=== PATIENT | male | born 1935 | race Caucasian/White ===

== ENCOUNTER 2021-10-31 19:08 | Emergency (ER) | payer OTHER ==
[~2021-10-31] VITALS: Ht 180.3 cm; Wt 93.8 kg
--- NOTE | 2021-10-31 19:43 | PHYS DOC ---
Past History Past Medical History: Anxiety, Arthritis, Other General Adult EDM: Chief Complaint: MECHANICAL FALL HPI: HPI: "This week we've been celebrating my and my birthday.... I was over at my daughter's house.... And I was coming down the ramp and had some black ice... And my feet went out from under me and I hit the back of my head.. that was about 6 pm.. but I ve been very shaky since then nothing else really got hurt.. It did not knock me out but it did give me a big hematoma and abrasion to my scalp.. " Patient is a 86 year old male who presents with above hx of slip and fall. Patient denies any loss of consciousness. Patient has an abrasion and approximately 10 x 10 cm hematoma to posterior scalp. Patient states he was had generalized weakness and shaking since the fall. No other injury reported during the fall. Patient does not remember his last tetanus shot. Patient gets all his care at the [facility]. Currently they are on diversion. Injury occurred approximately 1800 hrs. Review of Systems: Review of Systems: Constitutional: Denies fever or chills Eyes: Denies change in visual acuity HENT: Denies nasal congestion or sore throat Respiratory: Denies cough or shortness of breath Cardiovascular: Denies chest pain or edema GI: Denies abdominal pain, nausea, vomiting, bloody stools or diarrhea : Denies dysuria Musculoskeletal: Denies back pain or joint pain Integument: Denies rash Neurologic: Denies headache, focal weakness or sensory changes Endocrine: Denies polyuria or polydipsia Lymphatic: Denies swollen glands Psychiatric: Denies depression or anxiety Family History: Family History: Noncontributory to presentation. Current Medications: Current Meds: See nursing for home meds Allergies: Allergies: No known drug allergies Physical Exam: PE: Constitutional: Well developed, well nourished, for stated age. Mild distress, non-toxic appearance. [] HENT: Normocephalic, 10 x 10 cm contusion and abrasion to posterior scalp,, bilateral external ears normal, oropharynx moist, no oral exudates, nose normal. [] Eyes: PERRLA, EOMI, conjunctiva normal, no discharge. [] Neck: Normal range of motion, mild upper neck tenderness, supple, no stridor. [] Cardiovascular:Heart rate regular rhythm, no murmur, PMI to the left Lungs & Thorax: Bilateral breath sounds equal at apex auscultation [] Abdomen: Bowel sounds normal, soft, no tenderness, no masses, no pulsatile masses. Old surgery scars. Skin: Warm, dry, no erythema, no rash. Poor turgor Back: No tenderness, no CVA tenderness. [] Extremities: No tenderness, no cyanosis, no clubbing, ROM intact, no edema. Contusion elbow back. Arthritic changes. Neurologic: Alert and oriented X 3, moves all extremities on request does have distal sensory, no focal deficits noted. [] Psychologic: Affect anxious, judgement normal, mood normal. [] EKG: EKG: My interpretation EKG shows a sinus rhythm at 67 bpm. No acute morphology. Time of EKG is 2007 hrs. [] Radiology/Procedures: Radiology/Procedures: [place] [address] IMAGING REPORT Signed PATIENT: SHIRAZ LANE JACCOUNT: [id number] : 1935 LOCATION: ER AGE: 86 SEX: M EXAM STATUS: REG ER ORD. PHYSICIAN: CAROL JETT MD REASON: OMNI 350,100ML IV.Fall, weak, dyspnea PROCEDURE: CT ANGIOGRAPHY CHEST EXAMINATION: CTA Chest With IV contrast INDICATION:86 years, Male, falling down, weakness, dyspnea. COMPARISON: None. TECHNIQUE: Spiral CTA was obtained from the jugular notch through the posterior costophrenic recess. 3-D MIPS, sagittal and coronal reformats were obtained. Exposure: One or more of the following individualized dose reduction techniques were utilized for this examination: 1. Automated exposure control 2. Adjustment of the mA and/or kV according to patient size 3. Use of iterative reconstruction technique. FINDINGS: LUNGS/PLEURA: Central airways are patent. Scattered bilateral linear subsegmental atelectasis. No focal consolidation, pleural effusion or pneumothorax. There is a 6 mm pleural-based nodule in the left lower lobe. Additional, few scattered sub-5 mm solid pulmonary nodules bilaterally. Calcified granuloma in the lingula. MEDIASTINUM: No pathologic mediastinal or hilar adenopathy. Left mediastinal and left hilar calcified lymph nodes. Ectatic ascending thoracic aorta measures up to 4.0 cm in maximum diameter. Pulmonary arteries are normal in caliber. No evidence of pulmonary embolism. Mild cardiomegaly. No pericardial effusion. Moderate calcified coronary atherosclerosis. The visualized thyroid and the esophagus are unremarkable. AXILLA/SOFT TISSUE: No supraclavicular or axillary adenopathy. Regional soft tissues are within normal limits. UPPER ABDOMEN: The visualized upper abdomen appears unremarkable. BONES: No evidence of acute fractures or aggressive osseous lesions. IMPRESSION: 1. No evidence of pulmonary embolism. 2. Ectatic ascending thoracic aorta measures up to 4.0 cm in maximum diameter. 3. A 6 mm pleural-based nodule in the left lower lobe. Additional, few scattered sub-5 mm solid pulmonary nodules. Fleischner Society guidelines for management of incidental pulmonary nodule (Radiology 2017):Multiple solid nodules 6-8 mm: LOW-RISK and HIGH-RISK patient: CT at 3-6 months, then consider CT at 18-24 months 4. Moderate calcified coronary atherosclerosis. Electronically signed by: Cherie Stevenson MD (10/31/2021 11:52 PM) [facility] DICTATED AND SIGNED BY: CHERIE STEVENSON MD DATE: 10/31/21 7805 CC: CAROL JETT MD; NACHO HARRELL ~MTH0 0 [][place] [address] IMAGING REPORT Signed PATIENT: SHIRAZ LANE JACCOUNT: [id number] : 1935 LOCATION: ER AGE: 86 SEX: M EXAM STATUS: PRE ER ORD. PHYSICIAN: CAROL JETT MD REASON: fall PROCEDURE: PORTABLE CHEST 1V XR CHEST 1V History: Reason: fall / Spl. Instructions: / History: . Pain Comparison: None. Findings: Eventration of the right hemidiaphragm. No pleural effusion. No pneumothorax. Mild patchy bibasilar opacities. Impression: 1. Mild bibasilar linear atelectasis. Electronically signed by: Ford Noriega DO (10/31/2021 8:59 PM) [facility] DICTATED AND SIGNED BY: FORD NORIEGA DO DATE: 10/31/212057 CC: CAROL JETT MD; NON,STAFF ~MTH0 [address] [address] IMAGING REPORT Signed PATIENT: SHIRAZ LANECOUNT: [id number] : 1935 LOCATION: ER AGE: 86 SEX: M EXAM STATUS: PRE ER ORD. PHYSICIAN: CAROL JETT MD REASON: fall , head injury PROCEDURE: CT HEAD AND CERVICAL SPINE WO EXAM: CT HEAD WITHOUT IV CONTRAST CLINICAL HISTORY: Reason: fall , head injury / Spl. Instructions: / History: COMPARISON: None. TECHNIQUE: Routine CT of the head without contrast. Soft tissues and bone windows were reviewed. PQRS compliance statement - One or more of the following individualized dose reduction techniques were utilized for this study: 1. Automated exposure control 2. Adjustment of the mA and/or kV according to patient size 3. Use of iterative reconstruction technique FINDINGS: There is no evidence of hemorrhage, mass or extra-axial fluid collection. Richardson-white differentiation is maintained with no evidence of edema. There is no mass effect or shift of the intracranial structures. The ventricles, basilar cisterns and cortical sulci are normal in size and configuration for the patients stated age. The cerebellum and brainstem are unremarkable. The calvarium demonstrates no evidence of fracture or focal lesion. There is normal aeration of the visualized paranasal sinuses and mastoid air cells. The visualized portions of the orbits are normal. IMPRESSION: No evidence for acute intracranial process. EXAM: CT CERVICAL SPINE WITHOUT IV CONTRAST CLINICAL HISTORY: fall , head injury COMPARISON: None available. TECHNIQUE: Helical CT of the cervical spine was performed. Axial, coronal and sagittal reformatted images were also performed. PQRS compliance statement - One or more of the following individualized dose reduction techniques were utilized for this study: 1. Automated exposure control 2. Adjustment of the mA and/or kV according to patient size 3. Use of iterative reconstruction technique FINDINGS: Vertebral body heights are preserved. No acute fracture. Atlantodental degenerative changes are seen. Severe C3-4 disc height loss. Severe C6-7 disc height loss. Trace anterolisthesis of C7 on T1 likely degenerative. Interbody fusion C4-5. No acute fracture. IMPRESSION: 1. Multilevel spondylosis as above 2. Negative acute fracture 3. Trace anterolisthesis of C7 on T1 likely degenerative. Electronically signed by: Jack Larkin MD (10/31/2021 8:54 PM) [facility] DICTATED AND SIGNED BY: JACK LARKIN MD DATE: 10/31/212050 CC: CAROL JETT MD; NON,STAFF ~MTH0 0 Heart Score: C/O Chest Pain: N/A HEART Score for Chest Pain: HEART Score for Chest Pain Response (Comments) Value History Slighlty/Non-Suspicious 0 ECG Normal 0 Age > 65 2 Risk Factors No Risk Factors 0 Troponin < Normal Limit 0 Total 2 Risk Factors: Risk Factors: DM, Current or recent (<one month) smoker, HTN, HLP, family history of CAD, obesity. Risk Scores: Score 0 - 3: 2.5% MACE over next 6 weeks - Discharge Home Score 4 - 6: 20.3% MACE over next 6 weeks - Admit for Clinical Observation Score 7 - 10: 72.7% MACE over next 6 weeks - Early Invasive Strategies Course & Med Decision Making: Course & Med Decision Making Pertinent Labs and Imaging studies reviewed. (See chart for details) Patient has no direct shower water on abrasion contusion posterior scalp. For least 2 days. May use peroxide to clean area if needed. Apply Polysporin 4 times a day. Follow-up primary care. Stable someone to get observe him tonight. If patient vomits more than once after returning home will need reexam tonight. Impression: 1. Slip and fall 2. Head Injury 3. Contusions 4. Hyponatremia 5. Elevated D- dimer- ( suspect from contusions, head, elbows ect) [] Dragon Disclaimer: Dragon Disclaimer: This electronic medical record was generated, in whole or in part, using a voice recognition dictation system. Departure Departure: Referrals: NON,STAFF (PCP) Marty Disclaimer This chart was dictated in whole or in part using Voice Recognition software in a busy, high-work load, and often noisy Emergency Department environment. It may contain unintended and wholly unrecognized errors or omissions. CAROL JETT MD Oct 31, 2021 19:43
[2021-10-31] MEDS ORDERED: IV RINGERS SOLUTION,LACTATED 1,000 ML IV SCH (19:45)
--- NOTE | 2021-10-31 20:35 | EKG ---
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
[2021-10-31 20:43] LABS: BASO % 1 % (0-3); EOS # 0.2 x10^3/uL (0.0-0.7); EOS % 5 % (0-3); HEMATOCRIT 38.6 % (39.0-53.0); HEMOGLOBIN 13.2 g/dL (13.0-17.5); LYMPH % 21 % (24-48); MEAN CORPUSCULAR HEMOGLOBIN 35 pg (25-35); MEAN CORPUSCULAR HGB CONC 34 g/dL (31-37); MEAN CORPUSCULAR VOLUME 102 fL (79-100); MONO # 0.6 x10^3/uL (0.0-1.1); MONO % 13 % (0-9); NEUT % 61 % (31-73); PLATELET COUNT 229 x10^3/uL (140-400); RED BLOOD COUNT 3.79 x10^6/uL (4.30-5.70); RED CELL DISTRIBUTION WIDTH 12.9 % (11.5-14.5); WHITE BLOOD COUNT 4.8 x10^3/uL (4.0-11.0)
[2021-10-31 20:50] LABS: CALCIUM 8.3 mg/dL (8.5-10.1); CREATININE 0.7 mg/dL (0.7-1.3); GFR 107.2; POTASSIUM 4.2 mmol/L (3.5-5.1)
--- NOTE | 2021-10-31 20:56 | RAD ---
EXAM: CT HEAD WITHOUT IV CONTRAST CLINICAL HISTORY: Reason: fall , head injury / Spl. Instructions: / History: COMPARISON: None. TECHNIQUE: Routine CT of the head without contrast. Soft tissues and bone windows were reviewed. PQRS compliance statement - One or more of the following individualized dose reduction techniques wer e utilized for this study: 1. Automated exposure control 2. Adjustment of the mA and/or kV according to patient size 3. Use of iterative reconstruction technique FINDINGS: There is no evidence of hemorrhage, mass or extra-axial fluid collection. Richardson-white differentiation is maintained with no evidence of edema. There is no mass effect or shift of the intracranial structures. The ventricles, basilar cisterns and cortical sulci are normal in size and configuration for the junior ents stated age. The cerebellum and brainstem are unremarkable. The calvarium demonstrates no evidence of fracture or focal lesion. There is normal aeration of the visualized paranasal sinuses and mastoid air cells. The visualized portions of the orbits are normal. IMPRESSION: No evidence for acute intracranial process. EXAM: CT CERVICAL SPINE WITHOUT IV CONTRAST CLINICAL HISTORY: fall , head injury COMPARISON: None available. TECHNIQUE: Helical CT of the cervical spine was performed. Axial, coronal and sagittal reformatted im ages were also performed. PQRS compliance statement - One or more of the following individualized dose reduction techniques wer e utilized for this study: 1. Automated exposure control 2. Adjustment of the mA and/or kV according to patient size 3. Use of iterative reconstruction technique FINDINGS: Vertebral body heights are preserved. No acute fracture. Atlantodental degenerative changes are seen. Severe C3-4 disc height loss. Severe C6-7 disc height loss. Trace anterolisthesis of C7 on T1 likely degenerative. Interbody fusion C4-5. No acute fracture. IMPRESSION: 1. Multilevel spondylosis as above 2. Negative acute fracture 3. Trace anterolisthesis of C7 on T1 likely degenerative. Electronically signed by: Jack Bal MD (10/31/2021 8:54 PM) [facility]
[2021-10-31 21:02] LABS: ALBUMIN 3.4 g/dL (3.4-5.0); DIRECT BILIRUBIN 0.1 mg/dL (0.0-0.2); MAGNESIUM 1.9 mg/dL (1.8-2.4); TOTAL BILIRUBIN 0.3 mg/dL (0.2-1.0); TOTAL PROTEIN 6.7 g/dL (6.4-8.2)
--- NOTE | 2021-10-31 21:02 | RAD ---
XR CHEST 1V History: Reason: fall / Spl. Instructions: / History: . Pain Comparison: None. Findings: Eventration of the right hemidiaphragm. No pleural effusion. No pneumothorax. Mild patchy bibasilar o pacities. Impression: 1. Mild bibasilar linear atelectasis. Electronically signed by: Ford Noriega DO (10/31/2021 8:59 PM) [facility]
[2021-10-31] MEDS ORDERED: CONTRAST GIVEN. MC PRN (22:15)
[2021-10-31] MEDS ORDERED: IOHEXOL 350 MG/ML 100 ML VIAL. IV ONE (22:30)
[2021-10-31 23:49] VITALS: BP 154/92
--- NOTE | 2021-10-31 23:54 | RAD ---
EXAMINATION: CTA Chest With IV contrast INDICATION:86 years, Male, falling down, weakness, dyspnea. COMPARISON: None. TECHNIQUE: Spiral CTA was obtained from the jugular notch through the posterior costophrenic recess. 3-D MIPS, sagittal and coronal reformats were obtained. Exposure: One or more of the following individualized dose reduction techniques were utilized for thi s examination: 1. Automated exposure control 2. Adjustment of the mA and/or kV according to patient size 3. Use of iterative reconstruction technique. FINDINGS: LUNGS/PLEURA: Central airways are patent. Scattered bilateral linear subsegmental atelectasis. No foc al consolidation, pleural effusion or pneumothorax. There is a 6 mm pleural-based nodule in the left lower lobe. Additional, few scattered sub-5 mm solid pulmonary nodules bilaterally. Calcified granulo ma in the lingula. MEDIASTINUM: No pathologic mediastinal or hilar adenopathy. Left mediastinal and left hilar calcified lymph nodes. Ectatic ascending thoracic aorta measures up to 4.0 cm in maximum diameter. Pulmonary a rteries are normal in caliber. No evidence of pulmonary embolism. Mild cardiomegaly. No pericardial e ffusion. Moderate calcified coronary atherosclerosis. The visualized thyroid and the esophagus are un remarkable. AXILLA/SOFT TISSUE: No supraclavicular or axillary adenopathy. Regional soft tissues are within tj l limits. UPPER ABDOMEN: The visualized upper abdomen appears unremarkable. BONES: No evidence of acute fractures or aggressive osseous lesions. IMPRESSION: 1. No evidence of pulmonary embolism. 2. Ectatic ascending thoracic aorta measures up to 4.0 cm in maximum diameter. 3. A 6 mm pleural-based nodule in the left lower lobe. Additional, few scattered sub-5 mm solid pulm onary nodules. Fleischner Society guidelines for management of incidental pulmonary nodule (Radiology 2017):Multiple solid nodules 6-8 mm: LOW-RISK and HIGH-RISK patient: CT at 3-6 months, then consider CT at 18-24 months 4. Moderate calcified coronary atherosclerosis. Electronically signed by: Rusty Stevenson MD (10/31/2021 11:52 PM) [facility]
[2021-11-01 00:04] LABS: BACTERIA,URINE FEW /HPF (0-FEW); CLARITY,URINE CLEAR; COLOR,URINE YELLOW; GLUCOSE,URINE NEG (NEG); NITRITE,URINE NEG (NEG); UROBILINOGEN,URINE 0.2 mg/dL (0.2 mg/dL)
[2021-11-01 00:08] LABS: BARBITURATES NEG (NEG); BENZODIAZEPINES NEG (NEG); CANNABINOIDS NEG (NEG); COCAINE NEG (NEG); METHADONE NEG (NEG); OPIATES NEG (NEG); PHENCYCLIDINE NEG (NEG)
[2021-11-01 00:12] LABS: AMPHETAMINE/METHAMPHETAMINE NEG (NEG)
[2021-11-01 00:16] LABS: INFLUENZA A PATIENT NEGATIVE (NEGATIVE); INFLUENZA B PATIENT NEGATIVE (NEGATIVE)
== END 2021-11-01 00:35 | disposition home or self-care (01) ==
LOC: ER 19:08
DX: S00.03XA Contusion of scalp, initial encounter (principal); S50.02XA Contusion of left elbow, initial encounter; S50.01XA Contusion of right elbow, initial encounter; E87.1 Hypo-osmolality and hyponatremia; R79.1 Abnormal coagulation profile; M19.90 Unspecified osteoarthritis, unspecified site; W01.0XXA Fall on same level from slipping, tripping and stumbling without subsequent striking against object, initial encounter; Y93.89 Activity, other specified; Y92.89 Other specified places as the place of occurrence of the external cause; Y99.8 Other external cause status
CPT/HCPCS: 36415; 70450; 71045; 71275; 72125; 80048; 80076; 80307; 81001; 82550; 83690; 83735; 83880; 84443; 84484; 85025; 85379; 85610; 85730; 87428; 93005; 96360; 96361; 99285; J7120; Q9967